=== PATIENT | female | born 1955 | race Caucasian/White ===

== ENCOUNTER 2017-07-24 10:00 | Outpatient (CLI) | payer OTHER ==
[2017-07-24 11:28] LABS: Anion Gap 15 mmol/L (10-20); BUN (Urea Nitrogen) 24 mg/dL (9.8-20.1); Calc. Creatinine Clearance 0 mL/min (70-130); Calcium 10.1 mg/dL (7.8-10.44); Carbon Dioxide 27 mmol/L (22-29); Chloride 105 mmol/L (98-107); Estimated GFR-MDRD 50
[2017-07-24 11:32] LABS: Hematocrit 38.2 % (36.0-47.0); Mean Platelet Volume 8.7 fL (7.4-10.4); Red Blood Cell (RBC) Count 3.88 mill/uL (4.20-5.40); White Blood Cell (WBC) Count 9.4 thou/uL (4.8-10.8)
== END 2017-07-24 10:01 | disposition home or self-care (01) ==
LOC: LABBT 10:00
PROVIDERS: ATTEND Neurological Surgery
DX: Z01.818 Encounter for other preprocedural examination (principal); M43.16 Spondylolisthesis, lumbar region
CPT/HCPCS: 80048; 85027; 93005; 93010

== ENCOUNTER 2017-08-05 07:37 | Day surgery (SDC) | payer OTHER ==
[2017-07-24 10:10] VITALS: BMI 31.4
[2017-08-05] MEDS ORDERED: CEFAZOLIN/Water 2 GM/20 ML SYRINGE ONE (09:24)
[2017-08-05] MEDS ORDERED: Sodium Chloride 0.9% 10 ML ONE (10:59)
[2017-08-05] MEDS ORDERED: Fentanyl 100 MCG/2 ML VIAL ONE ×3 (11:07→13:28)
[2017-08-05] MEDS ORDERED: Ketorolac Tromethamine 30 MG/ML VIAL ONE (11:18)
[2017-08-05] MEDS ORDERED: Succinylcholine Chloride 20 MG/ML 10 ml SYRINGE FS ONE (11:18)
[2017-08-05] MEDS ORDERED: Propofol 200 MG/20 ML VIAL ONE (11:18)
[2017-08-05] MEDS ORDERED: Ondansetron HCl/PF 4 MG/2 ML Vial ONE (11:18)
[2017-08-05] MEDS ORDERED: Lidocaine 1% PF 5 ML VIAL ONE (11:18)
[2017-08-05] MEDS ORDERED: Metoclopramide HCl 10 MG/2 ML VIAL ONE (11:18)
[2017-08-05] MEDS ORDERED: Glycopyrrolate 0.2 MG/ML 5 ML SYRINGE ONE (11:18)
--- NOTE | 2017-08-05 12:37 | OP ---
DATE OF PROCEDURE: 08/05/2017 SURGEON: Ayo Robert M.D. PROCEDURES: Right L4-L5 laminectomy, facetectomy, foraminotomy, interbody arthrodesis, demineralize d bone matrix, local morselized autograft, posterolateral arthrodesis, pedicle screw instrumentation L4-L5. PROCEDURE IN DETAIL: The patient was brought into the operating room, intubated. She was rolled in the prone position on gel-filled chest rolls. Incision made exposing L4 and L5 and our level was c onfirmed by x-ray. We performed a complete right L4-5 right-sided laminectomy, facetectomy and fora minotomy, completely decompressing the lateral recess and the right L4 neural foramen. We incised t he disc space and debrided it, but it was extremely narrowed and I elected not to attempt to place a n intravertebral device. Next, pedicle screws were placed at right L4 and right L5 using lateral fl uoroscopic guidance. A aman was secured between the screws, connected by nuts which were final tight ened. The wound was then extensively irrigated, immaculate hemostasis was secured. A combination o f demineralized bone matrix and local morselized autograft was laid over the laminar and posterolate ral surfaces. Vancomycin powder was applied and the wound was closed in anatomic layers.
[2017-08-05] MEDS ORDERED: HYDROcodone/Acetaminophen 10/325 mg Tablet ONE ×2 (15:25→16:32)
--- OUTSIDE RECORDS SUMMARY | 2017-08-07 15:14 | XMS | Clinical Summary ---
:1955 Author Organization [facility] Address [address] [place] [phone] Phone Care Team Providers Name Role Phone , Primary Care Provider Unavailable Allergies Not on File Current Medications Not on file Active Problems Not on file Social History Tobacco Use Types Packs/Day Years Used Date Never Assessed Sex Assigned at Date Recorded Not on file Last Filed Vital Signs Not on file Plan of Treatment Not on file Results Not on filefrom Last 3 Months
== END 2017-08-05 18:25 | disposition home or self-care (01) ==
LOC: SDC 07:37
PROVIDERS: ATTEND Neurological Surgery
PROC: 01NB0ZZ Release Lumbar Nerve, Open Approach (ICD-10-PCS; principal; 2017-08-05)
PROC: 0SG00AJ Fusion of Lumbar Vertebral Joint with Interbody Fusion Device, Posterior Approach, Anterior Column, Open Approach (ICD-10-PCS; principal; 2017-08-05)
PROC: 0ST20ZZ Resection of Lumbar Vertebral Disc, Open Approach (ICD-10-PCS; principal; 2017-08-05)
DX: M51.36 Other intervertebral disc degeneration, lumbar region (principal); M43.16 Spondylolisthesis, lumbar region; I10 Essential (primary) hypertension; E78.5 Hyperlipidemia, unspecified; Z79.01 Long term (current) use of anticoagulants; Z79.899 Other long term (current) drug therapy; Z98.84 Bariatric surgery status; Z90.89 Acquired absence of other organs; Z90.711 Acquired absence of uterus with remaining cervical stump; Z90.49 Acquired absence of other specified parts of digestive tract; Z98.890 Other specified postprocedural states
CPT/HCPCS: 76001; 96374; A4216; C1713; C1768; J0131; J1170; J1885; J2001; J2270; J2405; J2704; J2765; J3010; J3370; J3490

== ENCOUNTER 2017-09-26 16:00 | Outpatient (CLI) | payer OTHER ==
--- NOTE | 2017-09-26 19:46 | RAD ---
LUMBAR SPINE 09/26/17 Three views. HISTORY: Postop followup. Back pain. Spondylolisthesis. COMPARISON: Lumbar films of 08/20/17. Pedicle screws on the right noted at L4-5. Lumbar vertebrae maintain height and alignment. No listhes is seen. There is loss of disc space at L3-4, L4-5, and L5-S1. Osteophytes are prominent at L4 and L5 with large anterior bridging osteophyte at L5-S1. IMPRESSION: Postoperative degenerative changes of the lumbar spine as described above without significant change from 08/20/17. POS: [facility]
== END 2017-09-26 16:01 | disposition home or self-care (01) ==
LOC: TBSIIMAG 16:00
PROVIDERS: ATTEND Physician Assistant
DX: M43.16 Spondylolisthesis, lumbar region (principal); M47.896 Other spondylosis, lumbar region; Z98.890 Other specified postprocedural states
CPT/HCPCS: 72100

== ENCOUNTER 2017-12-19 12:37 | Outpatient (CLI) | payer OTHER ==
--- NOTE | 2017-12-19 14:36 | RAD ---
LUMBAR SPINE 2 VIEWS: Date: 12/19/17 HISTORY: Back pain. Surgery. COMPARISON: 09/26/17. FINDINGS: There are five lumbar-type vertebrae. Right pedicle screws and vertical aman are in place at the L4-5 level. Other pedicles are intact. No perihardware lucency. Vertebral body heights are maintained. Dis c space narrowing and minimal degenerative retrolisthesis at the L3-4 level are stable. Osteophytosis is present throughout the vertebral bodies and facets. IMPRESSION: Postoperative and degenerative changes of the lumbar spine, stable. POS: [facility]
== END 2017-12-19 12:38 | disposition home or self-care (01) ==
LOC: TBSIIMAG 12:37
PROVIDERS: ATTEND Neurological Surgery
DX: M43.16 Spondylolisthesis, lumbar region (principal); M47.896 Other spondylosis, lumbar region; Z98.890 Other specified postprocedural states
CPT/HCPCS: 72100

== ENCOUNTER 2023-08-27 06:40 | Day surgery (SDC) | payer MEDICARE ==
[2023-08-23 12:15] VITALS: BMI 35.5
[~2023-08-27 06:40] MED LIST: EPINEPHrine 0.3 MG in Ophthalmic Irrigation Solution 500 ML IRR SCH
[2023-08-27] MEDS ORDERED: PHENYLephrine 2.5% Ophth Soln 15 ml Bottle ONE (07:46)
[2023-08-27] MEDS ORDERED: Cyclopentolate 1% Opth Drop 2 ML BOT ONE (07:47)
[2023-08-27] MEDS ORDERED: PROPOFOL 20 ML ONE (09:09)
[2023-08-27] MEDS ORDERED: Lidocaine 4% PF 5 ML AMP ONE (09:13)
[2023-08-27] MEDS ORDERED: Triamcinolone 40 MG/ML VIAL ONE (09:13)
[2023-08-27] MEDS ORDERED: Bupivacaine 0.75% 10 ML VIAL ONE (09:13)
[2023-08-27] MEDS ORDERED: Maxitrol 0.1% Opth Oint 3.5 GM TUBE ONE (09:13)
[2023-08-27] MEDS ORDERED: Lidocaine 1% PF 5 ML VIAL ONE (09:13)
[2023-08-27] MEDS ORDERED: CEFAZOLIN 1 GM VIAL ONE (09:13)
[2023-08-27] MEDS ORDERED: Indocyanine Green 25 MG/10 ML VIAL ONE (09:13)
== END 2023-08-27 10:30 | disposition home or self-care (01) ==
LOC: SDC 06:40
PROVIDERS: ATTEND Ophthalmology Retina Specialist
PROC: 08T53ZZ Resection of Left Vitreous, Percutaneous Approach (ICD-10-PCS; principal; 2023-08-27)
PROC: 08NF3ZZ Release Left Retina, Percutaneous Approach (ICD-10-PCS; 2023-08-27)
DX: H35.342 Macular cyst, hole, or pseudohole, left eye (principal)
CPT/HCPCS: 67025; J0171; J0690; J2704; J3301; J3490

== ENCOUNTER 2023-09-24 06:47 | Day surgery (SDC) | payer MEDICARE ==
[2023-09-20 14:56] VITALS: BMI 35.5
[2023-09-24] MEDS ORDERED: fentaNYL 50 mcg/mL 1 mL Vial ONE (09:11)
[2023-09-24] MEDS ORDERED: PROPOFOL 20 ML ONE (09:11)
[2023-09-24] MEDS ORDERED: Midazolam HCl 2 mg/2 ml Vial ONE (09:11)
[2023-09-24] MEDS ORDERED: Indocyanine Green 25 MG/10 ML VIAL ONE (09:26)
[2023-09-24] MEDS ORDERED: Lidocaine 1% PF 5 ML VIAL ONE (09:26)
[2023-09-24] MEDS ORDERED: Lidocaine 4% PF 5 ML AMP ONE (09:26)
[2023-09-24] MEDS ORDERED: CEFAZOLIN 1 GM VIAL ONE (09:26)
[2023-09-24] MEDS ORDERED: Maxitrol 0.1% Opth Oint 3.5 GM TUBE ONE (09:26)
[2023-09-24] MEDS ORDERED: Bupivacaine 0.75% 10 ML VIAL ONE (09:26)
== END 2023-09-24 10:30 | disposition home or self-care (01) ==
LOC: SDC 06:47
PROVIDERS: ATTEND Ophthalmology Retina Specialist
PROC: 08T53ZZ Resection of Left Vitreous, Percutaneous Approach (ICD-10-PCS; principal; 2023-09-24)
DX: H35.342 Macular cyst, hole, or pseudohole, left eye (principal); Z88.6 Allergy status to analgesic agent
CPT/HCPCS: 67042; J3010; 67025; J0171; J2250; J2704